=== PATIENT | male | born 1955 | race Two or more races ===

== ENCOUNTER 2017-05-25 09:47 | Emergency (ER) | payer SELFPAY ==
[~2017-05-25] VITALS: Ht 185.4 cm; Wt 78.0 kg
[2017-05-25] MEDS ORDERED: HYDROCODONE/ACETAMINOPHEN 5/325MG TABLET PO ONE (11:00)
[2017-05-25 11:27] LABS: CLARITY URINE CLOUDY (CLEAR); COLOR URINE YELLOW (YELLOW); KETONES URINE TRACE (NEGATIVE); LEUKOCYTE ESTERASE URINE NEGATIVE (NEGATIVE); NITRITE URINE NEGATIVE (NEGATIVE); OCCULT BLOOD URINE TRACE (NEGATIVE); PH URINE 6.5 (4.5-8.0); PROTEIN URINE NEGATIVE (NEGATIVE)
[2017-05-25] MEDS ORDERED: LIDOCAINE HCL/EPINEPHRINE 1%-EPI 1:100,000 20 ML VIAL INFIL ONE (12:45)
[2017-05-25] MEDS ORDERED: LIDOCAINE 1%/EPI 1:200,000 10 ML VIAL IJ ONE (13:00)
[2017-05-25 14:38] VITALS: BP 126/88
== END 2017-05-25 14:47 | disposition home or self-care (01) ==
LOC: ER 10:15
DX: S01.112A Laceration without foreign body of left eyelid and periocular area, initial encounter (principal); S00.83XA Contusion of other part of head, initial encounter; S30.1XXA Contusion of abdominal wall, initial encounter; R31.9 Hematuria, unspecified; W01.0XXA Fall on same level from slipping, tripping and stumbling without subsequent striking against object, initial encounter; Y93.89 Activity, other specified; Y92.018 Other place in single-family (private) house as the place of occurrence of the external cause
CPT/HCPCS: 12011; 70450; 70486; 74176; 81001; 99285; J3490

== ENCOUNTER 2018-09-06 15:24 | Emergency (ER) | payer SELFPAY ==
[~2018-09-06] VITALS: Ht 185.4 cm; Wt 79.0 kg
[2018-09-06] MEDS ORDERED: TETANUS, DIPHTHERIA, PERTUSSIS VAC/PF 0.5ML (>7YR OLD) IM ONE (20:30)
[2018-09-06] MEDS ORDERED: CEPHALEXIN 250MG CAPSULE PO ONE (20:30)
[2018-09-06] MEDS ORDERED: HYDROCODONE/ACETAMINOPHEN 10/325MG TABLET PO ONE (20:30)
[2018-09-06] MEDS ORDERED: LIDOCAINE HCL/PF 1% 2ML VIAL INFIL ONE (21:45)
[2018-09-06 22:55] VITALS: BP 133/96
== END 2018-09-06 23:00 | disposition home or self-care (01) ==
LOC: ER 15:24
DX: S63.283A Dislocation of proximal interphalangeal joint of left middle finger, initial encounter (principal); S60.413A Abrasion of left middle finger, initial encounter; W01.198A Fall on same level from slipping, tripping and stumbling with subsequent striking against other object, initial encounter; Y93.01 Activity, walking, marching and hiking; Y92.89 Other specified places as the place of occurrence of the external cause; F17.210 Nicotine dependence, cigarettes, uncomplicated; I10 Essential (primary) hypertension
CPT/HCPCS: 26770; 73140; 90715; 99284; J3490; Z7610